=== PATIENT | male | born 1975 | race American Indian/Alaskan Native ===

== ENCOUNTER 2017-11-07 21:19 | Emergency (ER) | payer MEDICAID ==
[2017-11-07 21:21] VITALS: BMI 26.2
[2017-11-07 21:25] VITALS: O2SAT 94
[2017-11-07] MEDS ORDERED: Sodium Chloride 0.9% 1,000 ML IV ONE (21:26)
--- NOTE | 2017-11-07 21:26 | C.PDOC ---
History Of Present Illness 42 year old male is brought to the ED by EMS after being found unresponsive in [facility]. On arrival patient is responding only painful stimuli with pin point pupils, no external signs of trauma. Patient is unable to provide further history due to current state. Time Seen by Provider: 11/07/17 21:26 Chief Complaint (Nursing): Altered Mental Status History Per: EMS History/Exam Limitations: Intoxication Onset/Duration Of Symptoms: Hrs Onset Of Symptoms: Cannot Confirm Onset Current Symptoms Are (Timing): Still Present Usual Baseline: Unknown Exacerbating Factor(s): Drug Use, Alcohol Use Use Of Anticoag/Antiplatelets: Unknown Decreased Ability To: Stand Recent travel outside of the [place]: No Additional History Per: EMS Past Medical History Reviewed: Historical Data, Nursing Documentation, Vital Signs Vital Signs: Last Vital Signs Temp 97.8 F 11/07/17 23:36 Pulse 60 11/07/17 23:36 Resp 16 11/07/17 23:36 BP 94/51 L 11/07/17 23:36 Pulse Ox 94 L 11/07/17 23:36 - Medical History PMH: No Chronic Diseases Surgical History: No Surg Hx Family History: States: Unknown Family Hx - Social History Hx Alcohol Use: Yes Hx Substance Use: Yes Review Of Systems Review Of Systems: ROS cannot be obtained secondary to pt's inabilty to answer questions. Physical Exam - Physical Exam Appears: Non-toxic, Other (Unresponsive, only to painful stimuli) Skin: Warm, Dry Head: Normacephalic Eye(s): bilateral: Other (Pin point pupils) Nose: No Discharge Oral Mucosa: Moist Neck: Supple Chest: Symmetrical Cardiovascular: Rhythm Regular, No Murmur Respiratory: No Rales, No Rhonchi, No Wheezing Gastrointestinal/Abdominal: Soft, No Tenderness, No Guarding, No Rebound Extremity: Bilateral: Normal Color And Temperature, Normal ROM Neurological/Psych: Other (Unresponsive ) Gait: Unable To Assess ED Course And Treatment - Laboratory Results Result Diagrams: 11/07/17 21:36 11/07/17 21:36 ECG: Interpreted By Me, Viewed By Me ECG Rhythm: Sinus Rhythm (64), Nonspecific Changes O2 Sat by Pulse Oximetry: 94 (On RA) Pulse Ox Interpretation: Normal - Radiology CXR: Interpreted by Me, Viewed By Me CXR Interpretation: No: Infiltrates, Fracture, Pnemothorax - CT Scan/US CT head Other Rad Studies (CT/US): Read By Radiologist, Radiology Report Reviewed CT/US Interpretation: FINDINGS: Brain: Unremarkable. No hemorrhage. No significant white matter disease. No edema. Ventricles: Unremarkable. No ventriculomegaly. Bones/joints: Unremarkable. No acute fracture. Soft tissues : Unremarkable. Sinuses: Minimal mucosal thickening is noted within the maxillary sinuses extending into the. ethmoid air cells in the left frontal sinus. Mucosal thickening extends posteriorly into the sphenoid. sinuses as well. Metallic clips are seen in the oral cavity on the right with the. Mastoid air cells: Unremarkable as visualized. No mastoid effusion. IMPRESSION : 1. No acute findings. 2. Mild Chronic english paranasal sinusitis. Thank you for allowing us to participate in the care of your patient. Dictated and Authenticated by: Indiana Morfin MD. 11/07/2017 11:26 PM Eastern Time ([place] & [place]) Progress Note: Plan: - EKG. - Labs. - CXR. - IV fluids. - UA. 10:13 PM Slightly more responsive. will give 2mg narcan. 1AM Pt is aaox3, states that he feels fine and wants to leave Reevaluation Time: 01:07 Reassessment Condition: Improved Critical Care Time - Critical Care Note Total Time (in mins): 30 Documented critical care: time excludes all time spent performing seperately billable procedures. Disposition Counseled Patient/Family Regarding: Studies Performed, Diagnosis, Need For Followup - Disposition Referrals: [facility] [Outside] Disposition: HOME/ ROUTINE Disposition Time: 21:26 Condition: FAIR Instructions: Polysubstance Abuse (DC) Forms: [employer] (Icelandic) - Clinical Impression Clinical Impression: Polysubstance abuse - Scribe Statement The provider has reviewed the documentation as recorded by the Scribe Shubham Xiao All medical record entries made by the Scribe were at my direction and personally dictated by me. I have reviewed the chart and agree that the record accurately reflects my personal performance of the history, physical exam, medical decision making, and the department course for this patient. I have also personally directed, reviewed, and agree with the discharge instructions and disposition.
[2017-11-07] MEDS ORDERED: Naloxone 0.4 mg/ml Inj (Adult) IVP ONE ×4 (21:40→22:14)
[2017-11-07 21:43] LABS: BASO # 0.1 K/uL (0.0-0.2); BASO % 0.9 % (0.0-2.0); EOS # 0.2 K/uL (0.0-0.7); EOS % 3.1 % (0.0-4.0); HEMOGLOBIN 14.2 g/dL (12.0-18.0); LYMPH # 3.2 K/uL (1.0-4.3); LYMPH % 49.8 % (20.0-40.0); MEAN CELL VOLUME 96.4 fL (80.0-94.0); MEAN CORPUSCULAR HEMOGLOBIN 32.8 pg (27.0-31.0); MEAN PLATELET VOLUME 8.9 fL (7.2-11.7); MONO # 0.5 K/uL (0.0-0.8); MONO % 8.5 % (0.0-10.0); NEUT # 2.4 K/uL (1.8-7.0); NEUT % 37.7 % (50.0-75.0); NRBC % 0.2 % (0.0-2.0); RBC 4.34 Mil/uL (4.40-5.90); RED CELL DISTRIBUTION WIDTH 14.3 % (11.5-14.5); WHITE BLOOD COUNT 6.3 K/uL (4.8-10.8)
[2017-11-07 21:45] LABS: URINE BILIRUBIN NEGATIVE (NEGATIVE); URINE BLOOD NEGATIVE (NEGATIVE); URINE CLARITY Clear (Clear); URINE COLOR Colorless (YELLOW); URINE GLUCOSE (UA) NORMAL (Normal); URINE LEUKOCYTE ESTERASE NEG Leu/uL (Negative); URINE PROTEIN NEGATIVE (NEGATIVE); URINE UROBILINOGEN NORMAL mg/dL (0.2-1.0)
[2017-11-07] MEDS ORDERED: Naloxone 0.4 mg/ml Inj (Adult) ONE ×2 (21:46→22:26)
[2017-11-07 22:05] LABS: ALB/GLOB RATIO 1.3 (1.0-2.1); ALBUMIN 4.4 g/dL (3.5-5.0); ALT/SGPT 18 U/L (21-72); AST/SGOT 33 U/L (17-59); BLOOD UREA NITROGEN 9 mg/dL (9-20); CALCIUM 8.5 mg/dl (8.6-10.4); GFR AFRICAN-AMERICAN > 60; GFR NON-AFRICAN AMERICAN > 60
[2017-11-07 22:16] LABS: BARBITURATES, UR NEGATIVE (NEGATIVE); BENZODIAZEPINES, UR NEGATIVE (NEGATIVE); OPIATES, UR NEGATIVE (NEGATIVE); PHENCYCLIDINE, UR POSITIVE (NEGATIVE)
--- NOTE | 2017-11-07 23:27 | CT ---
EXAM: CT Head Without Intravenous Contrast EXAM DATE/TIME: Exam ordered 11/07/2017 10:17 PM CLINICAL HISTORY: 42 years old, male; Signs and symptoms; Other: Unresponsive; Additional info: Unresponsive, +pcp TECHNIQUE: Axial computed tomography images of the head/brain without intravenous contrast. All CT scans at this facility use one or more dose reduction techniques, viz.: automated exposure control; ma/kV adjustment per patient size (including targeted exams where dose is matched to indication; i.e. head); or iterative reconstruction technique. Coronal and sagittal reformatted images were created and reviewed. COMPARISON: No relevant prior studies available. FINDINGS: Brain: Unremarkable. No hemorrhage. No significant white matter disease. No edema. Ventricles: Unremarkable. No ventriculomegaly. Bones/joints: Unremarkable. No acute fracture. Soft tissues: Unremarkable. Sinuses: Minimal mucosal thickening is noted within the maxillary sinuses extending into the ethmoid air cells in the left frontal sinus. Mucosal thickening extends posteriorly into the sphenoid sinuses as well. Metallic clips are seen in the oral cavity on the right with the Mastoid air cells: Unremarkable as visualized. No mastoid effusion. IMPRESSION: 1. No acute findings. 2. Mild Chronic english paranasal sinusitis
[2017-11-08 01:13] VITALS: BP 122/71; PULSE 76; RESP 18; TEMP 98.3
--- NOTE | 2017-11-08 07:57 | RAD ---
HISTORY: Detox/Psy COMPARISON: None TECHNIQUE: Chest one view . FINDINGS: LUNGS: No focal consolidation is seen. PLEURA: No pleural effusion is identified. CARDIOVASCULAR: Heart size is within normal limits. OSSEOUS STRUCTURES: Visualized osseous structures are unremarkable. VISUALIZED UPPER ABDOMEN: Unremarkable. OTHER FINDINGS: None. IMPRESSION: No acute cardiopulmonary process seen.
--- NOTE | 2017-11-10 00:10 | CARD ---
APPROVED REPORT EKG Measurement Heart [id number] VT [id number] <Conclusion> Normal sinus rhythm Normal ECG
== END 2017-11-08 01:17 | disposition home or self-care (01) ==
LOC: C.ER 21:19
DX: F19.10 Other psychoactive substance abuse, uncomplicated (principal)
CPT/HCPCS: 70450; 71045; 80053; 80320; 80324; 80345; 80346; 80349; 80353; 80358; 80361; 81001; 82948; 83992; 85025; 96361; 96374; 96376; 99284; J2310; J7040